=== PATIENT | male | born 1965 | race African-American/Black ===

== ENCOUNTER 2023-05-31 09:21 | Emergency (ER) | payer SELFPAY ==
[2023-05-31] MEDS ORDERED: ceFAZolin 2 GM in Sodium Chloride 0.9% 50 ML IV ONE (10:41)
== END 2023-05-31 11:34 | disposition home or self-care (01) ==
LOC: MW.ED 09:21
DX: L03.011 Cellulitis of right finger (principal)
CPT/HCPCS: 73130; 96365; 99283; J0690; J3490